=== PATIENT | male | born 1950 | race Two or more races ===

== ENCOUNTER 2018-04-14 09:38 | Inpatient (IN) | payer OTHER ==
[~2018-04-14] VITALS: Ht 172.7 cm; Wt 64.4 kg
[2018-04-18] MEDS ORDERED: POLY119PG (21:05)
== END 2018-04-17 13:03 | disposition home or self-care (01) | DRG 390 ==
LOC: ER 09:38 → SEC-K 15:38 → SURG 15:38
PROC: 0D7E8ZZ Dilation of Large Intestine, Via Natural or Artificial Opening Endoscopic (ICD-10-PCS; principal; 2018-04-15)
DX: K56.690 Other partial intestinal obstruction (principal); Z85.038 Personal history of other malignant neoplasm of large intestine

== ENCOUNTER 2018-04-18 20:58 | Inpatient (IN) | payer OTHER ==
[~2018-04-18] VITALS: Ht 172.7 cm; Wt 62.1 kg
[2018-04-18] MEDS ORDERED: POLY119PG (21:05)
[2018-04-30] MEDS ORDERED: INTESTINEX680 M1 PO (08:44)
== END 2018-04-30 09:54 | disposition home or self-care (01) | DRG 389 ==
LOC: ER 20:58 → MEDJ 04-19 16:54 → SURH 04-19 16:54 → MEDJ 04-19 17:36 → SURG 04-20 20:42 → SURH 04-22 11:21
PROC: 0D7E8ZZ Dilation of Large Intestine, Via Natural or Artificial Opening Endoscopic (ICD-10-PCS; principal; 2018-04-21)
PROC: 02HV33Z Insertion of Infusion Device into Superior Vena Cava, Percutaneous Approach (ICD-10-PCS; 2018-04-21)
PROC: 3E0436Z Introduction of Nutritional Substance into Central Vein, Percutaneous Approach (ICD-10-PCS; 2018-04-22)
PROC: 0D7P8DZ Dilation of Rectum with Intraluminal Device, Via Natural or Artificial Opening Endoscopic (ICD-10-PCS; 2018-04-27)
PROC: 0DJD7ZZ Inspection of Lower Intestinal Tract, Via Natural or Artificial Opening (ICD-10-PCS; 2018-04-27)
PROC: BW25Y0Z Computerized Tomography (CT Scan) of Chest, Abdomen and Pelvis using Other Contrast, Unenhanced and Enhanced (ICD-10-PCS; 2018-04-27)
DX: K56.690 Other partial intestinal obstruction (principal); C19 Malignant neoplasm of rectosigmoid junction

== ENCOUNTER 2018-05-02 14:24 | Inpatient (IN) | payer OTHER ==
[~2018-05-02] VITALS: Ht 167.6 cm; Wt 61.7 kg
[~2018-05-02 14:24] MED LIST: INTESTINEX680 M1 PO; POLY119PG
== END 2018-05-09 19:22 | disposition home or self-care (01) | DRG 330 ==
LOC: ER 14:24 → SURH 15:53
PROVIDERS: Colon & Rectal Surgery
PROC: 02HV33Z Insertion of Infusion Device into Superior Vena Cava, Percutaneous Approach (ICD-10-PCS; 2018-05-02)
PROC: BW20ZZZ Computerized Tomography (CT Scan) of Abdomen (ICD-10-PCS; 2018-05-02)
PROC: 0WBF4ZZ Excision of Abdominal Wall, Percutaneous Endoscopic Approach (ICD-10-PCS; 2018-05-06)
PROC: 0D1B4Z4 Bypass Ileum to Cutaneous, Percutaneous Endoscopic Approach (ICD-10-PCS; principal; 2018-05-06 15:30)
DX: K56.690 Other partial intestinal obstruction (principal); C19 Malignant neoplasm of rectosigmoid junction; C79.2 Secondary malignant neoplasm of skin; R18.8 Other ascites; J90 Pleural effusion, not elsewhere classified; I10 Essential (primary) hypertension; E88.09 Other disorders of plasma-protein metabolism, not elsewhere classified

== ENCOUNTER 2018-06-20 21:11 | Inpatient (IN) | payer OTHER ==
[~2018-06-20] VITALS: Ht 172.7 cm; Wt 58.1 kg
== END 2018-06-24 11:11 | disposition home or self-care (01) | DRG 726 ==
LOC: ER 21:11 → SURH 06-21 17:40 → SEC-K 06-21 17:40 → SURH 06-21 18:40
DX: N40.0 Benign prostatic hyperplasia without lower urinary tract symptoms (principal); C79.2 Secondary malignant neoplasm of skin; C19 Malignant neoplasm of rectosigmoid junction; R33.8 Other retention of urine